=== PATIENT | male | born 1975 | race Caucasian/White ===

== ENCOUNTER 2016-10-18 16:49 | Emergency (ER) | payer BC ==
--- NOTE | 2016-10-18 17:55 | DIAGNOSTIC IMAGING REPORT ---
PROCEDURE: XR CHEST 2 VIEW INDICATION: COUGH TECHNIQUE: PA and lateral views. COMPARISON: None. FINDINGS: Lungs are clear. Heart and mediastinum are normal. Thorax is normal. IMPRESSION: 1. Negative chest.
--- NOTE | 2016-10-18 18:26 | ED NURSING NOTES ---
Clinical Report - Nurses [facility] [address] [place] [address] 10/18/2016 16:52 Patient: LETICIA VOGEL TRIAGE Triage time 17:11. Acuity: LEVEL 4. Chief Complaint: FEVER, CHILLS, HEADACHE, COUGH, NAUSEA, VOMITING and DIARRHEA. Alert. No acute distress. --17:15 Crystal Borja R.N. 17:11 10/18/16. BP: 130/87. HR: 68. RR: 16. O2 saturation: 97% on room air. Temp: 97.7 F (oral). Pain level now: 10/14. --17:15 Crystal Borja R.N. Weight: 95.2 kg stated. Height/Length: 70 inches Per Patient. BMI: 30.1. --17:15 Crystal Borja R.N. Medications None. --17:14 Crystal Borja R.N. Allergies No Known Drug Allergy. --17:14 Crystal Borja R.N. History Arrived by private vehicle. Historian: patient. Accompanied by family and spouse. Primary physician (None). ( was seen in [facility] 5 days ago.). Onset. (about one week ago). 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 PAST MEDICAL HX: Immunizations: up-to-date. SOCIAL HX: Never smoker. Regular alcohol use. No drug use. NUTRITIONAL RISK ASSESSMENT: The nutritional risk assessment revealed no deficiencies. FUNCTIONAL ASSESSMENT: Functional assessment: no impairments noted. --17:15 Crystal Borja R.N. PROBLEMS: no known problems. ADDITIONAL SURGERIES: no known surgeries. Interventions ID band on patient. To treatment room. --17:15 Crystal Borja R.N. NURSING PROGRESS NOTES Head of bed elevated. Two patient identifiers checked. Call light placed in reach. Side rails up x 1. Bed placed in lowest position. Brakes of bed on. --17:15 Crystal Borja R.N. Patient ready for evaluation- chart flagged. --17:16 Crystal Borja R.N. DISPOSITION / DISCHARGE 18:35 10/18/16. BP: 130/72. HR: 67. RR: 15. O2 saturation: 99% on room air. Wise-Cannon pain scale: 4/10. --18:35 Crystal Borja R.N. Condition at departure: stable. No learning barriers present. Discharge instructions provided and reviewed with the patient. Reviewed medication(s) side effects, precautions, dosing and course information. Prescription(s) given to the patient. Patient verbalized understanding. Written instructions provided in Bermudian. The patient was discharged home and accompanied by spouse. He left the Emergency Department ambulatory and via private vehicle. Spouse driving. --18:37 Crystal Borja R.N. Work note given. --18:37 Crystal Borja R.N. Locked/Released at 10/18/2016 18:37 by Crystal Borja R.N.
--- NOTE | 2016-10-18 18:26 | ED ORDER SUMMARY ---
..... Patient: LETICIA VOGEL OrderSheet [facility] VisitID: [id number] [address] [place] [address] 40y, M Registration Date/Time: 10/18/2016 ORDER SHEET Weight: 95.2 kg (stated) Allergies: No Known Drug Allergy GENERAL ORDERS: Chest 2V Urgent (17:34 10/18/2016 Jen A.R.N.P.) (Ack 17:35 IJurca ER Tech1) (18:11 Luly R.N.) MEDICATION ORDERS: IV FLUIDS: ORDER SHEET NOTES: [Electronically signed by Crystal Borja R.N. (18:37 10/18/2016)] [Electronically signed by Zully Kuo.R.N.P. (19:10 10/18/2016)] [Electronically locked/signed by Crystal Borja R.N. (18:37 10/18/2016)]
--- NOTE | 2016-10-18 18:26 | ED ORDER SUMMARY ---
..... Patient: LETICIA VOGEL OrderSheet [facility] VisitID: [id number] [address] [place] [address] 40y, M Registration Date/Time: 10/18/2016 ORDER SHEET Weight: 95.2 kg (stated) Allergies: No Known Drug Allergy GENERAL ORDERS: Chest 2V Urgent (17:34 10/18/2016 Jen A.R.N.P.) (Ack 17:35 IJurca ER Tech1) (18:11 Luly R.N.) MEDICATION ORDERS: IV FLUIDS: ORDER SHEET NOTES: [Electronically signed by Crystal Borja R.N. (18:37 10/18/2016)] [Electronically signed by Zully Kuo.R.N.P. (19:10 10/18/2016)] [Electronically locked/signed by Crystal Borja R.N. (18:37 10/18/2016)]
--- NOTE | 2016-10-18 18:26 | ED CLINICAL REPORT ---
Clinical Report - Physicians/Mid Levels [facility] [address] [place] [address] 10/18/2016 16:52 Patient: LETICIA VOGEL Time Seen: 17:24; initial patient contact, initial documentation, patient care assumed. Arrived- By private vehicle. Historian- patient. HISTORY OF PRESENT ILLNESS Chief Complaint: FEVER and CHILLS. This started about 1 weeks ago and is still present. He has had subjective fever. The patient has had muscle aches. He has had a mild cough productive of thick, yellow sputum. Additional history - No known contact with a sick individual. Has not recently been ill. He is not immunocompromised. No recent hospitalization. No new medication recently administered. No history of cancer. No history of HIV illness. No indwelling line. No recent travel. No known exposure to an animal. No drug use. He has had alcohol consumption recently. Similar symptoms previously: None. Recent medical care: The patient was seen recently in a clinic. ( went to walk in clinic x5 days ago, dx with flu, but no flu screen done, not feeling any better, given virtussin cough syrup and coughing pills). REVIEW OF SYSTEMS The patient has had nausea. No constipation, black stools, difficulty with urination, flank pain or headache. No sinus pain, neck pain or back pain. He has had vomiting (today). The vomiting has occurred only once. diarrhea. All systems otherwise negative, except as recorded above. PAST HISTORY Negative. SOCIAL HISTORY Never smoker. Regular alcohol use. Not exposed to second-hand smoke at home. No drug use. No recent travel. Is a local resident. FAMILY HISTORY Negative. ADDITIONAL NOTES The nursing notes have been reviewed with agreement regarding the chief complaint, HPI, ROS, PMH and patient medications and allergies. PHYSICAL EXAM Vital Signs: 10/18/2016 17:11 BP: 130/87. HR: 68. RR: 16. O2 saturation: 97%. Temp: 97.7 F. Pain level now: 4/10. Have been reviewed as normal and appear to be correct. Appearance: Alert. No acute distress. Eyes: Pupils equal, round and reactive to light. Eyes normal inspection. ENT: Ears normal. Nose normal. Pharynx normal. Uvula midline. Neck: Normal inspection. Neck supple. CVS: Normal heart rate and rhythm. Heart sounds normal. Pulses normal. Respiratory: No respiratory distress. Breath sounds abnormal. Inspiratory mild bilateral wheezes anteriorly (upper). Chest nontender. Abdomen: Soft and nontender. Back: Normal inspection. Skin: Skin warm and dry. Normal skin color. No rash. Normal skin turgor. Extremities: Extremities exhibit normal ROM. Extremities nontender. Neuro: Oriented X 3. No motor deficit. No sensory deficit. LABS, X-RAYS, AND EKG Chest X-ray: Normal Chest X-Ray. (IMPRESSION: 1. Negative chest. Electronically Final signed by:Niko Lake MD 10/18/2016 5:55:37 PM). The X-rays were interpreted by the radiologist and contemporaneously by me. Interpretation time: 18:16. PROGRESS AND PROCEDURES Patient and spouse counseled in person regarding the patient's stable condition, test results and diagnosis. 18:16. Differential Diagnosis: Other possible considerations: flu, uri, viral illness, bronchitis, sinusitis, pneumonia. Above considerations are based on history, physical exam and X-Ray data. Differential diagnosis was discussed with patient and patient's spouse. Disposition: Discharged home in good and unchanged condition (18:26). Condition: good and stable. CLINICAL IMPRESSION Acute mucopurulent bronchitis. No chronic obstructive pulmonary disease, asthma or bronchospasm. INSTRUCTIONS Alternate Tylenol (Acetaminophen) and Motrin (Ibuprofen) for fever, temperature greater than 101 degrees orally. Take according to label instructions. Do not work today, for two days. Drink plenty of fluids for the next 24 hours until better. Warnings: GENERAL WARNINGS: Return or contact your physician immediately if your condition worsens or changes unexpectedly, if not improving as expected, or if other problems arise. Specifically return if problem worsens. Prescription Medications: Albuterol HFA oral inhaler: inhale 1 to 2 puffs every four to six hours as needed for difficulty breathing. Dispense one (1) unit. No refills. Zithromax 250 mg tablets: take 2 orally today, followed by 1 daily for the next 4 days. No refills. Substitution is permissible. Follow-up: Follow up with your doctor in about three days even if well. Call for an appointment. Summary of care provided to patient. Understanding of the discharge instructions verbalized by patient. (Electronically signed by Zully Kuo A.R.N.P. 10/18/2016 19:10)
--- NOTE | 2016-10-18 18:26 | ED NURSING NOTES ---
Clinical Report - Nurses [facility] [address] [place] [address] 10/18/2016 16:52 Patient: LETICIA VOGEL TRIAGE Triage time 17:11. Acuity: LEVEL 4. Chief Complaint: FEVER, CHILLS, HEADACHE, COUGH, NAUSEA, VOMITING and DIARRHEA. Alert. No acute distress. --17:15 Crystal Borja R.N. 17:11 10/18/16. BP: 130/87. HR: 68. RR: 16. O2 saturation: 97% on room air. Temp: 97.7 F (oral). Pain level now: 10/14. --17:15 Crystal Borja R.N. Weight: 95.2 kg stated. Height/Length: 70 inches Per Patient. BMI: 30.1. --17:15 Crystal Borja R.N. Medications None. --17:14 Crystal Borja R.N. Allergies No Known Drug Allergy. --17:14 Crystal Borja R.N. History Arrived by private vehicle. Historian: patient. Accompanied by family and spouse. Primary physician (None). ( was seen in Walk in Clinic 5 days ago.). Onset. (about one week ago). 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 PAST MEDICAL HX: Immunizations: up-to-date. SOCIAL HX: Never smoker. Regular alcohol use. No drug use. NUTRITIONAL RISK ASSESSMENT: The nutritional risk assessment revealed no deficiencies. FUNCTIONAL ASSESSMENT: Functional assessment: no impairments noted. --17:15 Crystal Borja R.N. PROBLEMS: no known problems. ADDITIONAL SURGERIES: no known surgeries. Interventions ID band on patient. To treatment room. --17:15 Crystal Borja R.N. NURSING PROGRESS NOTES Head of bed elevated. Two patient identifiers checked. Call light placed in reach. Side rails up x 1. Bed placed in lowest position. Brakes of bed on. --17:15 Crystal Borja R.N. Patient ready for evaluation- chart flagged. --17:16 Crystal Borja R.N. DISPOSITION / DISCHARGE 18:35 10/18/16. BP: 130/72. HR: 67. RR: 15. O2 saturation: 99% on room air. Wise-Cannon pain scale: 4/10. --18:35 Crystal Borja R.N. Condition at departure: stable. No learning barriers present. Discharge instructions provided and reviewed with the patient. Reviewed medication(s) side effects, precautions, dosing and course information. Prescription(s) given to the patient. Patient verbalized understanding. Written instructions provided in Latvian. The patient was discharged home and accompanied by spouse. He left the Emergency Department ambulatory and via private vehicle. Spouse driving. --18:37 Crystal Borja R.N. Work note given. --18:37 Crystal Borja R.N. Locked/Released at 10/18/2016 18:37 by Crystal Borja R.N.
--- NOTE | 2016-10-18 19:10 | ED MAR SUMMARY ---
..... Medication Administration Record [facility] [address], [place] [id number] Patient: LETICIA VOGEL Visit ID: [id number] 40y, M Weight: 95.2 kg Height/Length: 70 in BMI: 30.1 ALLERGIES: No Known Drug Allergy
--- NOTE | 2016-10-18 19:10 | ED DISCHARGE INSTRUCTIONS ---
Patient: LETICIA VOGEL General Instructions [facility] VisitID: [id number] [place] [address] 40y, M Registration Date/Time: 10/18/2016 INSTRUCTIONS Alternate Tylenol (Acetaminophen) and Motrin (Ibuprofen) for fever, temperature greater than 101 degrees orally. Take according to label instructions. Do not work today, for two days. Drink plenty of fluids for the next 24 hours until better. Warnings: GENERAL WARNINGS: Return or contact your physician immediately if your condition worsens or changes unexpectedly, if not improving as expected, or if other problems arise. Specifically return if problem worsens. Prescription Medications: Albuterol HFA oral inhaler: inhale 1 to 2 puffs every four to six hours as needed for difficulty breathing. Dispense one (1) unit. No refills. Zithromax 250 mg tablets: take 2 orally today, followed by 1 daily for the next 4 days. No refills. Substitution is permissible. Follow-up: Follow up with your doctor in about three days even if well. Call for an appointment. Summary of care provided to patient. Understanding of the discharge instructions verbalized by patient. ADDITIONAL INFORMATION Bronchitis (Adult: Abx Tx) BRONCHITIS is an infection of the air passages (bronchial tubes). It often occurs during the common cold. Symptoms include cough with mucus (phlegm) and low-grade fever. Bronchitis usually lasts 7-14 days. Mild cases can be treated with simple home remedies. More severe infection is treated with an antibiotic. Home Care: If symptoms are severe, rest at home for the first 2-3 days. When you resume activity, don't let yourself get too tired. Do not smoke. Avoid being exposed to the smoke of others. You may use acetaminophen (Tylenol) or ibuprofen (Motrin, Advil) to control fever or pain, unless another medicine was prescribed for this. [NOTE: If you have chronic liver or kidney disease or ever had a stomach ulcer or GI bleeding, talk with your doctor before using these medicines.] Your appetite may be poor, so a light diet is fine. Avoid dehydration by drinking 6-8 glasses of fluids per day (water, soft, drinks, juices, tea, soup, etc.). Extra fluids will help loosen secretions in the lungs. Auom-dlt-hxzreos cough medicines that containdextromethorphan(such as Robitussin DM) and decongestants (Actifed or Sudafed) may help relieve cough and congestion. [NOTE: Do not use decongestants if you have high blood pressure.] Finish all antibiotic medicine, even if you are feeling better after only a few days. Follow Up with your doctor or as directed if you dont start to feel better after three days. [NOTE: If you are age 65 or older, or if you have chronic asthma or COPD, we recommend a PNEUMOCOCCAL VACCINATION every five years and a yearly INFLUENZAVACCINATION (FLU-SHOT) every . Ask your doctor about this. If you had an X-ray, a radiologist will review it. You will be notified of any new findings that may affect your care.] Get Prompt Medical Attention if any of the following occur: Fever over 100.4F (38.0C) for more than three days Trouble breathing, wheezing or pain with breathing Coughing up blood or increased amounts of colored sputum Weakness, drowsiness, headache, facial pain, ear pain or a stiff neck Fever Control (Adult) A fever is a natural reaction of the body to an illness. In most cases, the temperature itself is not harmful. It actually helps the body fight infections. A fever does not need to be treated unless you feel very uncomfortable. Home Care If you feel warm, check your temperature. If you feel very uncomfortable and your temperature is at or higher than 100.4F (38C) oral, you may take acetaminophen (Tylenol) every 4 to 6 hours. If you cant take or keep down oral medicine, ask your pharmacist for Tylenol suppositories, which you can get without a prescription. If the fever does not respond to acetaminophen within 1 hour, take ibuprofen (Advil or Motrin). If this works, keep taking the ibuprofen every 6 to 8 hours. Note: If you have chronic liver or kidney disease or ever had a stomach ulcer or GI bleeding, talk with your doctor before using these medications. If either medication alone does not keep the fever down, you may alternate the two medicines every 3 to 4 hours, only if your healthcare provider has instructed you to do so. For example, take Motrin then wait 3 hours, take Tylenol then wait 3 hours, take Motrin, and so on. Follow your healthcare providers instructions exactly. Clothing: Keep clothing light because excess body heat is lost through the skin. The fever will go up if you wear extra layers or wrap in blankets. Fluids: Fever causes the body to lose water through evaporation. Drink plenty of fluids such as water, juice, clear sodas, kody hubert, or lemonade. Do not use aspirin in anyone under 18 years of age who is ill with a fever. It can cause severe liver damage. Follow Up with your doctor or as advised by our staff if you do not get better after 48 hours. Get Prompt Medical Attention if any of the following occur: Fever does not get better after taking fever medication Fast or difficult breathing Earache, sinus pain, stiff or painful neck, headache, repeated diarrhea or vomiting You feel unusually irritable, drowsy, or confused A rash appears You feel weak or dizzy, or that you might faint Albuterol Sulfate Pressurized inhalation, suspension What is this medicine? ALBUTEROL (al BYOO ter ole) is a bronchodilator. It helps open up the airways in your lungs to make it easier to breathe. This medicine is used to treat and to prevent bronchospasm. How should I use this medicine? This medicine is for inhalation through the mouth. Follow the directions on your prescription label. Take your medicine at regular intervals. Do not use more often than directed. Make sure that you are using your inhaler correctly. Ask you doctor or health care provider if you have any questions. Talk to your rum processing operator regarding the use of this medicine in children. Special care may be needed. What side effects may I notice from receiving this medicine? Side effects that you should report to your doctor or health resident care supervisor as soon as possible: allergic reactions like skin rash, itching or hives, swelling of the face, lips, or tongue breathing problems chest pain feeling faint or lightheaded, falls high blood pressure irregular heartbeat fever muscle cramps or weakness pain, tingling, numbness in the hands or feet vomiting Side effects that usually do not require medical attention (report to your doctor or health resident care supervisor if they continue or are bothersome): cough difficulty sleeping headache nervousness or trembling stomach upset stuffy or runny nose throat irritation unusual taste What may interact with this medicine? anti-infectives like chloroquine and pentamidine caffeine cisapride diuretics medicines for colds medicines for depression or for emotional or psychotic conditions medicines for weight loss including some herbal products methadone some antibiotics like clarithromycin, erythromycin, levofloxacin, and linezolid some heart medicines steroid hormones like dexamethasone, cortisone, hydrocortisone theophylline thyroid hormones What if I miss a dose? If you miss a dose, use it as soon as you can. If it is almost time for your next dose, use only that dose. Do not use double or extra doses. Where should I keep my medicine? Keep out of the reach of children. Store at room temperature between 15 and 30 degrees C (59 and 86 degrees F). The contents are under pressure and may burst when exposed to heat or flame. Do not freeze. This medicine does not work as well if it is too cold. Throw away any unused medicine after the expiration date. Inhalers need to be thrown away after the labeled number of puffs have been used or by the expiration date; whichever comes first. Ventolin HFA should be thrown away 12 months after removing from foil pouch. Check the instructions that come with your medicine. What should I tell my health care provider before I take this medicine? They need to know if you have any of the following conditions: diabetes heart disease or irregular heartbeat high blood pressure pheochromocytoma seizures thyroid disease an unusual or allergic reaction to albuterol, levalbuterol, sulfites, other medicines, foods, dyes, or preservatives or trying to get breast-feeding What should I watch for while using this medicine? Tell your doctor or health resident care supervisor if your symptoms do not improve. Do not use extra albuterol. If your asthma or bronchitis gets worse while you are using this medicine, call your doctor right away. If your mouth gets dry try chewing sugarless gum or sucking hard candy. Drink water as directed. Azithromycin Oral tablet What is this medicine? AZITHROMYCIN (az ith chet MYE sin) is a macrolide antibiotic. It is used to treat or prevent certain kinds of bacterial infections. It will not work for colds, flu, or other viral infections. How should I use this medicine? Take this medicine by mouth with a full glass of water. Follow the directions on the prescription label. The tablets can be taken with food or on an empty stomach. If the medicine upsets your stomach, take it with food. Take your medicine at regular intervals. Do not take your medicine more often than directed. Take all of your medicine as directed even if you think your are better. Do not skip doses or stop your medicine early. Talk to your rum processing operator regarding the use of this medicine in children. Special care may be needed. What side effects may I notice from receiving this medicine? Side effects that you should report to your doctor or health resident care supervisor as soon as possible: allergic reactions like skin rash, itching or hives, swelling of the face, lips, or tongue confusion, nightmares or hallucinations dark urine difficulty breathing hearing loss irregular heartbeat or chest pain pain or difficulty passing urine redness, blistering, peeling or loosening of the skin, including inside the mouth white patches or sores in the mouth yellowing of the eyes or skin Side effects that usually do not require medical attention (report to your doctor or health resident care supervisor if they continue or are bothersome): diarrhea dizziness, drowsiness headache stomach upset or vomiting tooth discoloration vaginal irritation What may interact with this medicine? Do not take this medicine with any of the following medications: lincomycin This medicine may also interact with the following medications: amiodarone antacids cyclosporine digoxin magnesium nelfinavir phenytoin warfarin What if I miss a dose? If you miss a dose, take it as soon as you can. If it is almost time for your next dose, take only that dose. Do not take double or extra doses. Where should I keep my medicine? Keep out of the reach of children. Store at room temperature between 15 and 30 degrees C (59 and 86 degrees F). Throw away any unused medicine after the expiration date. What should I tell my health care provider before I take this medicine? They need to know if you have any of these conditions: kidney disease liver disease irregular heartbeat or heart disease an unusual or allergic reaction to azithromycin, erythromycin, other macrolide antibiotics, foods, dyes, or preservatives or trying to get breast-feeding What should I watch for while using this medicine? Tell your doctor or health resident care supervisor if your symptoms do not improve. Do not treat diarrhea with over the counter products. Contact your doctor if you have diarrhea that lasts more than 2 days or if it is severe and watery. This medicine can make you more sensitive to the sun. Keep out of the sun. If you cannot avoid being in the sun, wear protective clothing and use sunscreen. Do not use sun lamps or tanning beds/booths. You have been given the following additional information: Bronchitis, Antiobiotic Treatment (Adult) Fever Control (Adult) Albuterol Sulfate Pressurized inhalation, suspension Azithromycin Oral tablet Do not work today, for two days. (Electronically signed by Zully Kuo A.R.N.P. 10/18/2016 19:10)
--- NOTE | 2016-10-18 19:10 | ED MED RECONCILIATION SUMMARY ---
Patient: LETICIA VOGEL Medication Reconciliation Report [facility] VisitID: [id number] [place] [address] 40y, M Registration Date/Time: 10/18/2016 Weight: 95.2 kg Height/Length: 70 in. BMI: 30.1 ALLERGIES: No Known Drug Allergy The patient's Home Medications are listed below: NONE. The source(s) of the original Home Medication information: Not obtained. The following Medications were given to the patient in the Emergency Department: None. The following Medications were prescribed to the patient: Albuterol HFA oral inhaler: inhale 1 to 2 puffs every four to six hours as needed for difficulty breathing. Dispense one (1) unit. No refills. -- Zully Kuo, TeresaR.N.P. Zithromax 250 mg tablets: take 2 orally today, followed by 1 daily for the next 4 days. No refills. Substitution is permissible. -- Zully Kuo A.R.N.P.
--- NOTE | 2016-10-18 19:10 | ED MAR SUMMARY ---
..... Medication Administration Record [facility] [address] [place], [place] [id number] Patient: LETICIA VOGEL Visit ID: [id number] 40y, M Weight: 95.2 kg Height/Length: 70 in BMI: 30.1 ALLERGIES: No Known Drug Allergy
--- NOTE | 2016-10-18 19:10 | ED MED RECONCILIATION SUMMARY ---
Patient: LETICIA VOGEL Medication Reconciliation Report [facility] VisitID: [id number] [place] [address] 40y, M Registration Date/Time: 10/18/2016 Weight: 95.2 kg Height/Length: 70 in. BMI: 30.1 ALLERGIES: No Known Drug Allergy The patient's Home Medications are listed below: NONE. The source(s) of the original Home Medication information: Not obtained. The following Medications were given to the patient in the Emergency Department: None. The following Medications were prescribed to the patient: Albuterol HFA oral inhaler: inhale 1 to 2 puffs every four to six hours as needed for difficulty breathing. Dispense one (1) unit. No refills. -- Zully Kuo, TeresaR.N.P. Zithromax 250 mg tablets: take 2 orally today, followed by 1 daily for the next 4 days. No refills. Substitution is permissible. -- Zully Kuo A.R.N.P.
== END 2016-10-18 18:34 | disposition home or self-care (01) ==
LOC: ED SRH 16:49
DX: J20.9 Acute bronchitis, unspecified (principal)